=== PATIENT | female | born 1995 | race African-American/Black ===

== ENCOUNTER 2016-12-22 18:44 | Emergency (ER) | payer SELFPAY ==
[~2016-12-22] VITALS: Ht 167.6 cm; Wt 71.9 kg
[2016-12-22 18:49] VITALS: TEMP 36.8; Ht 167.6 cm; Wt 71.9 kg
[2016-12-22] MEDS ORDERED: DEXT1LIQ80 PO (20:38)
[2016-12-22] MEDS ORDERED: AZITTAB PO (20:38)
--- NOTE | 2016-12-22 22:12 | DIAGNOSTIC IMAGING REPORT ---
CHEST 2 VIEWS ROUTINE CLINICAL HISTORY: CHEST PAIN, COUGH COMPARISON STUDY: 08/07/2015 FINDINGS: The cardiac and mediastinal contours are normal. There is no evidence of focal pulmonary consolidation. There is no evidence of failure. No pleural effusions are visualized.[ IMPRESSION: No active disease in the chest. Electronically signed by: Gage Prieto M.D. 12/22/2016 10:11 PM Dictated Date/Time: 12/22/2016 10:10 PM
[2016-12-22 22:14] LABS: BASO % 0.4 %; BASO ABS # 0.04 K/uL (0-0.2); COMPLETE YES; EOS % 1.4 %; HEMATOCRIT 40.4 % (37-47); IG% 0.2 %; LYMPH % 31.3 %; LYMPH ABS # 2.87 K/uL (1.2-3.4); MEAN CELL VOLUME 75.9 fL (80-100); MEAN CORPUSCULAR HEMOGLOBIN 25.4 pg (25-34); MEAN CORPUSCULAR HGB CONC 33.4 g/dl (32-36); MEAN PLATELET VOLUME 9.4 fL (7.4-10.4); MONO % 6.9 %; NEUT % 59.8 %; PLATELET COUNT 345 K/uL (130-400); RED BLOOD COUNT 5.32 M/uL (4.2-5.4); WHITE BLOOD COUNT 9.16 K/uL (4.8-10.8)
[2016-12-22] MEDS ORDERED: KETOROLAC TROMETHAMINE 60 MG/2 ML VIAL IM STA (22:18)
[2016-12-22 22:19] LABS: INR 1.1 (0.9-1.1); PROTHROMBIN TIME (PATIENT) 11.4 SECONDS (9.0-12.0)
[2016-12-22 22:25] LABS: ALT/SGPT 10 U/L (12-78); BLOOD UREA NITROGEN 9 mg/dl (7-18); BUN/CREATININE RATIO 11.4 (10-20); CALCIUM 9.2 mg/dl (8.5-10.1); CARBON DIOXIDE 24 mmol/L (21-32); CHLORIDE 108 mmol/L (98-107); GLUCOSE 77 mg/dl (70-99); SODIUM 143 mmol/L (136-145)
[2016-12-22 22:30] LABS: ALKALINE PHOSPHATASE 66 U/L (45-117); AST/SGOT 11 U/L (15-37)
[2016-12-22] MEDS ORDERED: KETOROLAC TROMETHAMINE 30 MG/ML VIAL IV STA (22:48)
[2016-12-22 22:56] VITALS: BP 141/111; PULSE 94; O2SAT 97
[2016-12-22] MEDS ORDERED: NORCO 5/325MG HOME PACK PO ONE (23:00)
[2016-12-22] MEDS ORDERED: ALBUTEROL HFA 8 GM INHALER INH ONE (23:00)
[2016-12-22] MEDS ORDERED: PRED20TA PO (23:00)
[2016-12-22] MEDS ORDERED: HYDR-5688 PO (23:00)
--- NOTE | 2016-12-22 23:02 | EMERGENCY ROOM VISIT NOTE ---
History First contact with patient: 19:40 Chief Complaint: CHEST PAIN Stated Complaint: CHEST PAIN Nursing Triage Summary: Patient reports chest pain that began 2 days ago and got worse today. Patient reports pain is worse with deep breath and with movement. History of Present Illness Patient is a 21-year-old female who presents emergency department for evaluation of chest pain 2 days. Patient reports she's been sick with a cold and upper respiratory symptoms for almost 2 weeks. She reports the cough has persisted. Her father is a family practitioner in [place], and he recently. Called in prescriptions for azithromycin, cough syrup and she's been using ibuprofen 600 mg for pain. She is also to take Tylenol. She states that the pain initially started on the right side of her chest, and now it spread across the entire chest. It is worse with coughing, deep breathing, movement or when she lays flat. She states it feels like "sore muscles," but occasionally can become stabbing. She presently rates her pain a 7.5/10. She traveled to [facility] in late October/early November, denies any calf or leg pain or swelling. She is not a smoker nor on any oral contraceptives. There is no known personal or family history of DVT or PE. Review of Systems Review of systems as per HPI. All other systems reviewed were negative. 10 systems reviewed. Past Medical/Surgical History Medical Problems: (1) Chest pain (2) Elevated AST (SGOT) (3) No Known Active Medical Problems (4) Patellar subluxation (5) Right knee sprain Electronic medical records are reviewed and summarized as above/below. See Problem List. Social History Smoking Status: Never Smoker Alcohol Use: occasionally Marital Status: single Housing Status: lives with roommate Occupation Status: [employer] student Current/Historical Medications Scheduled Azithromycin (Zithromax Z-Ludwin), 1 PKT PO UD Dextromethorphan Polistirex (Cough Dm), 1 DOSE PO HS Prednisone (Prednisone), 0 PO DAILY Scheduled PRN Hydrocodone/Acetaminophen 5MG/325MG ([place] 5MG/325MG), 1 TABLET PO Q4 PRN for Pain Allergies Coded Allergies: No Known Allergies (Unverified , 08/07/15) Physical Exam Vital Signs Date Time Temp Pulse Resp B/P Pulse Ox O2 Delivery O2 Flow Rate FiO2 12/22/16 22:56 94 18 141/111 97 Room Air 12/22/16 18:49 36.8 113 18 157/109 99 Room Air Physical Exam CONSTITUTIONAL: Patient is a well-appearing 21-year-old white female who is awake and alert and in no acute distress. She is noted to be slightly tachycardic in triage with a heart rate of 113, blood pressure 157/109. Vital signs were rechecked by me at the time of exam. Heart rate was 93, oxygen saturation 97% on room air, blood pressure 144/100. EYES: Pupils equal, round, reactive to light and accommodation. EOMs intact without nystagmus. Sclera are anicteric. ENT: Tympanic membranes intact, with normal landmarks. External canals are clear. Oral and nasopharynx are clear. Mucous membranes are moist, no lesions , tongue and gums appear normal. NECK: No bruits auscultated. Supple without lymphadenopathy. No thyromegaly. No meningeal signs. Full active range of motion without discomfort. CARDIOVASCULAR: Regular rate and rhythm, with normal S1 and S2, no murmur or gallop or rub is heard. No carotid bruits auscultated. No JVD. Peripheral pulses easy to palpable. Chest wall is nontender to palpation. RESPIRATORY: Breath sounds equal and clear to auscultation without wheezes, rales, or rhonchi heard. Full and equal chest expansion without accessory muscle use or retractions. GI: Bowel sounds are present. Abdomen is soft, nontender, nondistended. No organomegaly. No pulsatile masses. No guarding or rebound. MUSCULOSKELETAL: Full range of motion of extremities x 4 with good strength. No cyanosis, edema, joint tenderness or swelling. No deformity. INTEGUMENTARY: No lesions or rash, normal skin turgor. NEUROLOGICAL: Alert, oriented, and cooperative. Cranial nerves, sensation and strength grossly intact. Pupils round, equal, and react to light, EOMs are full. LYMPH: No lymphadenopathy. Medical Decision & Procedures ER Provider Diagnostic Interpretation: CHEST 2 VIEWS ROUTINE CLINICAL HISTORY: CHEST PAIN, COUGH COMPARISON STUDY: 08/07/2015 FINDINGS: The cardiac and mediastinal contours are normal. There is no evidence of focal pulmonary consolidation. There is no evidence of failure. No pleural effusions are visualized.[ IMPRESSION: No active disease in the chest. Laboratory Results 12/22/16 21:45 Red Blood Count 5.32, Mean Corpuscular Volume 75.9, Mean Corpuscular Hemoglobin 25.4, Mean Corpuscular Hemoglobin Concent 33.4, Mean Platelet Volume 9.4, Neutrophils (%) (Auto) 59.8, Lymphocytes (%) (Auto) 31.3, Monocytes (%) (Auto) 6.9, Eosinophils (%) (Auto) 1.4, Basophils (%) (Auto) 0.4, Neutrophils # (Auto) 5.47, Lymphocytes # (Auto) 2.87, Monocytes # (Auto) 0.63, Eosinophils # (Auto) 0.13, Basophils # (Auto) 0.04 12/22/16 21:45 Test 12/22/16 00:00 12/22/16 21:45 12/22/16 21:51 Erythrocyte Sedimentation Rate 34 mm/hr (0-21) Urine Test NEG (NEG) White Blood Count 9.16 K/uL (4.8-10.8) Red Blood Count 5.32 M/uL (4.2-5.4) Hemoglobin 13.5 g/dL (12.0-16.0) Hematocrit 40.4 % (37-47) Mean Corpuscular Volume 75.9 fL (80-100) Mean Corpuscular Hemoglobin 25.4 pg (25-34) Mean Corpuscular Hemoglobin Concent 33.4 g/dl (32-36) Platelet Count 345 K/uL (130-400) Mean Platelet Volume 9.4 fL (7.4-10.4) Neutrophils (%) (Auto) 59.8 % Lymphocytes (%) (Auto) 31.3 % Monocytes (%) (Auto) 6.9 % Eosinophils (%) (Auto) 1.4 % Basophils (%) (Auto) 0.4 % Neutrophils # (Auto) 5.47 K/uL (1.4-6.5) Lymphocytes # (Auto) 2.87 K/uL (1.2-3.4) Monocytes # (Auto) 0.63 K/uL (0.11-0.59) Eosinophils # (Auto) 0.13 K/uL (0-0.5) Basophils # (Auto) 0.04 K/uL (0-0.2) RDW Standard Deviation 40.3 fL (36.4-46.3) RDW Coefficient of Variation 14.6 % (11.5-14.5) Immature Granulocyte % (Auto) 0.2 % Immature Granulocyte # (Auto) 0.02 K/uL (0.00-0.02) Prothrombin Time 11.4 SECONDS (9.0-12.0) Prothromb Time International Ratio 1.1 (0.9-1.1) Activated Partial Thromboplast Time 25.4 SECONDS (21.0-31.0) Partial Thromboplastin Ratio 1.0 Anion Gap 11.0 mmol/L (3-11) Est Creatinine Clear Calc Drug Dose 112.9 ml/min Estimated GFR () 122.2 Estimated GFR (Non- 105.4 BUN/Creatinine Ratio 11.4 (10-20) Calcium Level 9.2 mg/dl (8.5-10.1) Total Bilirubin 0.4 mg/dl (0.2-1) Aspartate Amino Transf (AST/SGOT) 11 U/L (15-37) Alanine Aminotransferase (ALT/SGPT) 10 U/L (12-78) Alkaline Phosphatase 66 U/L (45-117) Total Creatine Kinase 43 U/L (26-192) Creatine Kinase MB < 0.5 ng/ml (0.5-3.6) Creatine Kinase MB Ratio (0-3.0) Total Protein 8.0 gm/dl (6.4-8.2) Albumin 3.9 gm/dl (3.4-5.0) Globulin 4.1 gm/dl (2.5-4.0) Albumin/Globulin Ratio 1.0 (0.9-2) Bedside D-Dimer 208 ng/mlFEU (0-450) Bedside Troponin I 0.000 ng/ml (0-0.045) Medications Administered Medications (Trade) Dose Ordered Sig/Shayy Route Start Time Stop Time Status Last Admin Dose Admin Ketorolac Tromethamine (Toradol Inj) 30 mg NOW STAT IV 12/22/16 22:48 12/22/16 22:49 DC 12/22/16 22:59 30 MG Acetaminophen/ Hydrocodone Bitart ([place] 5/325mg Home Pack) 1 homepack UD ONCE PO 12/22/16 23:00 12/22/16 23:01 DC 12/22/16 23:10 1 HOMEPACK Albuterol (Ventolin Hfa Inhaler) 2 puffs NOW ONCE INH 12/22/16 23:00 12/22/16 23:01 DC 12/22/16 23:10 2 PUFFS ECG Indication: chest pain Rate (beats per minute): 89 Rhythm: normal sinus Findings: no acute ischemic change Change: no significant change ED Course Patient was seen and evaluated as above. Old records are reviewed. She presents to the emergency department for evaluation of pleuritic chest pain in the setting of an upper respiratory illness over the last 2 weeks. Laboratory studies were collected including CBC with differential, CMP, coags, cardiac enzymes, [id number] d-dimer, sedimentation rate, pycjs-al-jzen troponin. EKG was performed and was as noted above. She has some nonspecific T-wave changes, but no evidence for acute ischemic process. Chest x-ray was obtained and was clear. Laboratory studies noted a normal white count. H&H is normal. She has slight, nonspecific elevation of her sedimentation rate. Electrolytes are within normal limits. Liver functions are not elevated. CK, CK-MB and troponin are negative. Urine dip was clear and test was negative. A d-dimer was performed and it was negative therefore, no further imaging for PE was performed. Patient was treated with Toradol 30 mg IV. Her pain is pleuritic in nature in the setting of a bronchitis-like illness. She's been on antibiotics and using NSAIDs. She was given [place] to use for pain, and was also given an albuterol inhaler. She was also given a short course of oral prednisone to use if her symptoms are not improving with the NSAID use. She was educated on the worrisome signs or symptoms for which she should return to the emergency room. Differential diagnosis includes acute myocardial infarction, acute coronary syndrome, myocarditis, pericarditis, pulmonary embolism, pneumonia, pneumothorax , cardiomyopathy, COPD/asthma exacerbation, musculoskeletal, anxiety, costochondritis, among others. Medical Decision See ED Course. Impression Primary Impression: Pleuritic chest pain Additional Impression: Acute bronchitis Departure Information Prescriptions Prednisone (Prednisone) 20 Mg Tab 0 PO DAILY, #18 TAB 3 DAILY FOR 3 DAYS, THEN 2 DAILY FOR 3 DAYS, THEN 1 DAILY FOR 3 DAYS. Prov: Maya Patel PA 12/22/16 Hydrocodone/Acetaminophen 5MG/325MG ([place] 5MG/325MG) Tab 1 TABLET PO Q4 Y for Pain, #15 TAB For Initial Treatment Prov: Maya Patel PA 12/22/16 Referrals No Doctor, Assigned (PCP) Patient Instructions My [facility] Additional Instructions Finish antibiotics as prescribed. Albuterol Inhaler: Take 2 puffs four times daily for seven days, then as needed. Hydrocodone/Acetaminophen ([place]) 5/325 mg: Take 1-2 pills every four hours for breakthrough pain. Avoid alcohol, operating machinery or dangerous equipment, working on ladders or roofs, DRIVING, or situations where being under the influence may be dangerous. It is recommended to use an [id number] stool softener such as Colace, 100mg twice daily while taking this medication to avoid constipation. Ibuprofen(Motrin, Advil) may be used for fever or pain. Use 600mg every six hours as needed. Take with food. Avoid using more than 2400mg in a 24 hour period. Do not use 2400mg per day for more than three consecutive days without physician direction. Prolonged inappropriate use can lead to stomach upset or ulcers. This is available over the counter and typically comes in 200mg tablets. (AND/OR) Acetaminophen(Tylenol) may be used for fever or pain. Use 1000mg every eight hours as needed. Avoid using more than 3000mg in a 24 hour period. This is available over the counter. If you are feeling no better in 2-3 days, fill and take Prednisone : Once daily until the prescription is finished. It is best to take this earlier in the day as some patients note occasional difficulty falling asleep when taken in the late evening. Read all the package inserts or medication information paperwork provided. If you have any questions or concerns call your primary provider, pharmacist or the ER for assistance. Rest and drink plenty of fluids. Avoid strenuous activity until your symptoms resolve and your breathing returns to normal. Continue current medications. Return to the ER for chest pain, difficulty breathing, persistent fevers, vomiting, worsening of your condition, or as needed Follow up with [facility] next week for recheck of your current condition. Problem Qualifiers Additional Impression: Acute bronchitis Bronchitis organism: unspecified organism Qualified Codes: J20.9 - Acute bronchitis, unspecified
== END 2016-12-22 23:16 | disposition home or self-care (01) ==
LOC: C.EDB 18:45
DX: R07.81 Pleurodynia (principal); J20.9 Acute bronchitis, unspecified